=== PATIENT | male | born 1980 | race American Indian/Alaskan Native ===

== ENCOUNTER 2021-05-11 03:40 | Emergency (ER) | payer SELFPAY ==
[2021-05-11 04:50] VITALS: BP 139/94
[2021-05-11] MEDS ORDERED: ONDANSETRON 4 MG ODT TAB PO ONE (05:01)
[2021-05-11] MEDS ORDERED: FAMOTIDINE 20 MG TAB PO ONE (05:01)
[2021-05-11] MEDS ORDERED: oxyCODONE /ACETAMINOPHEN 5-325MG TAB PO ONE (05:01)
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
== END 2021-05-11 07:42 | disposition home or self-care (01) ==
LOC: ED 03:40
DX: S83.92XA Sprain of unspecified site of left knee, initial encounter (principal); S63.92XA Sprain of unspecified part of left wrist and hand, initial encounter; S00.83XA Contusion of other part of head, initial encounter; M62.838 Other muscle spasm; M54.2 Cervicalgia; F17.200 Nicotine dependence, unspecified, uncomplicated; Z88.1 Allergy status to other antibiotic agents; Z79.899 Other long term (current) drug therapy; V89.2XXA Person injured in unspecified motor-vehicle accident, traffic, initial encounter; Y93.89 Activity, other specified; Y92.488 Other paved roadways as the place of occurrence of the external cause; Y99.8 Other external cause status
CPT/HCPCS: 70450; 70486; 72125; 99284; J3490; Q0162